=== PATIENT | female | born 1950 | race African-American/Black ===

== ENCOUNTER 2023-04-16 23:02 | Emergency (ER) | payer SELFPAY ==
[~2023-04-16] VITALS: Ht 160 cm; Wt 78.0 kg
[2023-04-16 23:19] VITALS: O2SAT 100
[2023-04-17] MEDS ORDERED: BACITRACIN ZINC OINT UDPKT TOP ONE (00:30)
[2023-04-17] MEDS ORDERED: TETANUS, DIPHTHERIA, PERTUSSIS VAC/PF 0.5ML (>10YR OLD) IM ONE (00:30)
[2023-04-17 04:00] VITALS: BP 125/64; PULSE 76; RESP 16; TEMP 98.2
== END 2023-04-17 04:15 | disposition home or self-care (01) ==
LOC: ER 23:02
DX: S71.111A Laceration without foreign body, right thigh, initial encounter (principal); S40.022A Contusion of left upper arm, initial encounter; M54.50 Low back pain, unspecified; Y08.89XA Assault by other specified means, initial encounter; Y93.89 Activity, other specified; Y92.89 Other specified places as the place of occurrence of the external cause; Y99.8 Other external cause status
CPT/HCPCS: 12001; 71045; 73060; 90471; 90715; 99284; Z7610